=== PATIENT | male | born 1975 | race Caucasian/White ===

== ENCOUNTER 2023-01-13 18:55 | Emergency (ER) | payer MEDICAID ==
[~2023-01-13] VITALS: Ht 167.6 cm; Wt 73.9 kg
[2023-01-13 19:02] VITALS: BP 139/94; O2SAT 99
[2023-01-13] MEDS ORDERED: BACITRACIN ZINC OINT UDPKT TOP ONE (20:15)
[2023-01-13] MEDS ORDERED: LIDOCAINE HCL/PF 1% 10 MG/ML 5ML VIAL INFIL ONE (20:15)
[2023-01-13] MEDS ORDERED: ACET-2708 MT (21:02)
[2023-01-13 21:19] VITALS: PULSE 95; RESP 16; TEMP 98.2
== END 2023-01-13 21:22 | disposition home or self-care (01) ==
LOC: ER 18:55
DX: S61.511A Laceration without foreign body of right wrist, initial encounter (principal); E78.00 Pure hypercholesterolemia, unspecified; I10 Essential (primary) hypertension; E11.9 Type 2 diabetes mellitus without complications; W26.9XXA Contact with unspecified sharp object(s), initial encounter; Y93.89 Activity, other specified; Y92.89 Other specified places as the place of occurrence of the external cause; Y99.8 Other external cause status
CPT/HCPCS: 12002; 99282; J3490; Z7610 ×2